=== PATIENT | male | born 1965 | race Caucasian/White ===

== ENCOUNTER 2023-02-15 07:56 | Observation (INO) | payer OTHER, SELFPAY ==
[2023-02-15] VITALS (17 sets, daily range): BP systolic 119–155; BP diastolic 77–98; PULSE 75–104; RESP 10–22; TEMP 36.4–36.6; O2SAT 91–100; BMI 34.2; BMI 33.1
--- NOTE | 2023-02-15 07:57 | ECG_ITS ---
APPROVED REPORT Exam: Resting ECG HR:77 bpm ECG Measurements Heart Rate 77 AXES UT 185 P 61 QRSd 92 QRS 32 QT 369 T 36 QTc 401 Conclusion SINUS RHYTHM POSSIBLE RIGHT VENTRICULAR CONDUCTION DELAY [RSR (QR) IN V1/V2] BORDERLINE ECG UNCONFIRMED REPORT Electronically signed by : Saud Ventura MD 02/15/2023 17:07:07
[2023-02-15 08:20] LABS: Basophils # 0.1 K/mm3 (0-0.2); Basophils % 0.5 % (0.1-2.0); Eosinophils % 0.3 % (0.1-12.0); Hematocrit 49.8 % (42.0-52.0); Hemoglobin 16.8 g/dL (14.1-18.0); Lymphocytes # 1.3 K/mm3 (0.7-4.5); Lymphocytes % 13.2 % (10-50); Mean Corpuscular HGB Conc 33.7 g/dL (31.8-35.4); Mean Corpuscular Hemoglobin 28.8 pg (27.0-31.2); Mean Corpuscular Volume 85.5 fl (80-94); Mean Platelet Volume 9.2 fl (7.4-10.4); Monocytes # 0.4 K/mm3 (0.1-1.0); Monocytes % 3.9 % (1.7-9.3); Neutrophils # 7.8 K/mm3 (1.8-7.8); Platelet Count 194 K/mm3 (142-424); Red Blood Count 5.83 M/mm3 (4.60-6.20); Red Cell Distribution Width 13.2 % (11.5-17.5); White Blood Count 9.5 K/mm3 (4.8-10.8)
[2023-02-15 08:22] LABS: Chloride 106 mmol/L (98-107)
[2023-02-15 08:23] LABS: Potassium 4.3 mmoL/L (3.5-5.1); Sodium 140 mmol/L (136-145)
--- NOTE | 2023-02-15 08:23 | HMH.EDGENADL ---
Discharge Plan Disposition Patient Disposition: Admitted Chief Complaint: Dizziness Prescriptions Prescriptions: No Action montelukast [Singulair] 10 mg tablet 10 mg PO DAILY meloxicam 15 mg tablet 15 mg PO DAILY Referrals Follow up/Referrals: Harini Darling [Primary Care Provider] - See instructions Clinical Impressions Clinical Impression: Acute labyrinthitis Qualifiers: Laterality: left Qualified Code(s): H83.02 - Labyrinthitis, left ear Peripheral positional vertigo Qualifiers: Laterality: left Qualified Code(s): H81.392 - Other peripheral vertigo, left ear Discharge ED Provider: Tomer Martinez General Adult HPI General Chief complaint: Dizziness Stated complaint: syncope Time Seen by Provider: 02/15/23 07:59 Mode of Arrival: EMS Source of Information: Patient and EMS Limitations: No Limitations Description of Symptoms (Recalled from ER Triage Doc. by RN): Pt presents to ER via EMS after experiencing vertigo and nausea. Pt reports he woke up @ 3 am to urinate and when he stood up, he immediately experienced the room spinning and dizziness. Denies any LOC. He also was nauseated. Pt reports he waited and tried again, however the same thing occured. He reports he had to void and thus crawled to his bathroom. He reports the room continued to spin and he vomited d/t the nausea. Denies any SOA, dyspnea, or chest pain. He denies any hx of these symtoms. Pt also reports my left ear is full , denies having this issues prior to this morning. History of Present Illness HPI narrative: 57-year-old male with no relevant medical history 57-year-old male with history of spondylarthritis, uveitis, IBS presenting with vertigo. Patient states that he woke up today, 10 in order to go to the bathroom. When he tried to roll over to stand up, had intense vertiginous symptoms. Unable to ambulate, so laid on the floor. He laid on the floor for probably 5 or 10 minutes, but had to go to bathroom, so tried to move, had extreme vertigo return. Was able to crawl to the bathroom and void, however was unable to move without extreme vertigo. Patient states vertigo is fatiguing. Made worse with any head movement. Made better with rest. Associated with vomiting. Patient does not fevers, chills, unilateral deficits, blurry vision, double vision, chest pain, shortness of breath, diaphoresis, or any other concerns. Was brought to the emergency department via EMS given symptoms. Related Data Home Medications Medication Instructions Recorded Confirmed meloxicam 15 mg tablet 15 mg PO DAILY 01/28/23 01/28/23 montelukast 10 mg tablet 10 mg PO DAILY 01/28/23 01/28/23 (Singulair) Allergies Allergy/AdvReac Type Severity Reaction Status Date / Time Sulfa (Sulfonamide Allergy Severe Unknown Verified 02/15/23 08:03 Antibiotics) allergy reaction [facility] Disclaimer: The information contained in this section may have been updated after the patient was seen, as this information can be updated by other users. Social History (Updated 01/28/23 @ 09:53 by Teresa Chang MA) Smoking Status: Never smoker alcohol intake: never substance use type: denies use current occupational status: employed Travel in the last 8 weeks: None ROS Obtained: Yes All systems reviewed & no additional complaints except as documented Physical Exam General General appearance: alert and in no apparent distress Head Head exam: atraumatic and normocephalic Eye Eye exam: Present normal appearance, PERRL, EOMI and nystagmus (Lateral reaching extraocular nelson. Fast face toward the left. No rotary or vertical nystagmus.) ENT ENT exam: Present mucous membranes moist Neck Neck exam: Present normal inspection, full ROM and trachea midline Respiratory Respiratory exam: Absent respiratory distress, wheezes, stridor, accessory muscle use or prolonged expiratory phase Cardiovascular Cardiovascular exam: Present regular rate and
[2023-02-15 08:25] LABS: Alanine Aminotransferase 51 U/L (12-78); Albumin Level 4.1 g/dl (3.5-5.0); Albumin/Globulin Ratio 1.5 (1.1-1.8); Alkaline Phosphatase 61 U/L (38-126); Anion Gap 12.3 mEq/L (5-15); Aspartate Amino Transferase 40 U/L (17-59); Bilirubin,Total 0.3 mg/dl (0.2-1.3); Blood Urea Nitrogen 18 mg/dl (9-20); Carbon Dioxide 26 mmol/L (22.0-30.0); Creatinine Clearance Estimated 116 mL/min (50-200); Estimated Glomerular Filt Rate 63 ml/min (>60); GFR (African American) 76 ML/MIN (>60); Globulin 2.8 g/dL (1.3-3.2); Total Protein,Serum 6.9 g/dl (6.3-8.2)
[2023-02-15 08:26] LABS: Calcium 9.2 mg/dl (8.4-10.2); Glucose 142 mg/dl (74-100)
[2023-02-15 08:39] LABS: Troponin I < 0.01 ng/ml (0.00-0.034)
--- NOTE | 2023-02-15 09:40 | PC.NURSE ---
rechecked on pt. He is not having anusea, but still very dizzy with any movement. MD harding
--- NOTE | 2023-02-15 11:39 | CT_ITS ---
FINAL REPORT TECHNIQUE: Thin section axial CT with IV contrast supplemented with multiplanar reconstruction under CT angiogram protocol. 3-D reconstructions were performed. This study was performed with techniques to keep radiation doses as low as reasonably achievable (ALARA). Individualized dose reduction techniques using automated exposure control or adjustment of mA and/or kV according to the patient''s size were employed. CLINICAL HISTORY: Persistent dizziness FINDINGS: The distal vertebral and distal internal carotid arteries have an unremarkable appearance. 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 No aneurysm is seen. Major intracranial vessels are patent without significant stenosis. IMPRESSION: No evidence of significant stenosis. No aneurysm Reviewed, Interpreted and Dictated by Scot Middleton III, MD Transcribed by Josselyn Peña Authenticated and [facility]
--- NOTE | 2023-02-15 11:39 | CT_ITS ---
FINAL REPORT CLINICAL HISTORY: Persistent dizziness FINDINGS: Axial images of the head were obtained without contrast. Coronal reformatted images were also obtained.This study was performed with techniques to keep radiation doses as low as reasonably achievable (ALARA). Individualized dose reduction techniques using automated exposure control or adjustment of mA and/or kV according to the patient's size were employed. There is no evidence of intracranial hemorrhage or mass. The ventricular size is within normal limits. There is no evidence of shift of the midline structures. No abnormal extra axial fluid collection is identified. No skull abnormality is seen on the bone window images. There are retention cysts or polyps in the maxillary sinuses IMPRESSION: No acute intracranial abnormality. Reviewed, Interpreted and Dictated by Scot Middleton III, MD Transcribed by Josselyn Peña Authenticated and [facility]
--- NOTE | 2023-02-15 11:39 | CT_ITS ---
FINAL REPORT TECHNIQUE: Thin section axial CT with IV contrast supplemented with multiplanar reconstruction under CT angiogram protocol. This study was performed with techniques to keep radiation doses as low as reasonably achievable (ALARA). Individualized dose reduction techniques using automated exposure control or adjustment of mA and/or kV according to the patient''s size were employed. NASCET criteria was utilized during interpretation. CLINICAL HISTORY: Persistent dizziness FINDINGS: Aortic arch: Arch shows no significant narrowing. Great vessel origins are widely patent. Right carotid: No significant stenosis is seen of the cervical common or internal carotid artery. Left carotid: No significant stenosis is seen of the cervical common or internal carotid artery. Vertebral: The vertebral arteries are hypoplastic but patent bilaterally. IMPRESSION: No evidence of significant stenosis. Reviewed, Interpreted and Dictated by Scot Middleton III, MD Transcribed by Josselyn Peña Authenticated and [facility]
--- NOTE | 2023-02-15 11:57 | PC.NURSE ---
pt to ct scan via stretcher
--- NOTE | 2023-02-15 13:37 | PC.NURSE ---
DR CAMPBELL ACCEPTED PT FOR ADMISSION
--- NOTE | 2023-02-15 13:38 | PC.NURSE ---
TARA WITH CARE MANAGEMENT NOTIFIED OF ADMISSION
--- NOTE | 2023-02-15 13:42 | EXP.HP ---
History of Present Illness *Admission Date: 02/15/23 *Reason for visit:: dizziness, nausea *History of present illness: Mr. Suggs is a 57-year-old male with history of spondyloarthropathy, allergies, who presents with acute onset overnight of dizziness, vomiting. Patient reports that he woke up at approximately 3 this morning to go the bathroom and when he stood up he immediately experienced the sensation of the room spinning and doing somersaults. Denies any trauma, loss of consciousness, syncope. He reports feeling nauseated and so he laid back down and waited for symptoms to pass. However symptoms did not any really needed to use the bathroom. He decided to make his way to the bathroom which necessitated him crawling on his hands and knees. After going to the bathroom, he laid on the floor where he proceeded to throw up. He slipped on the floor for few hours before his found him. He was unable to get up off the floor due to dizziness necessitating EMS to be called. He denies any shortness of breath, chest pain, confusion. Of note was vaccinated for flu and pneumonia 3 weeks ago and diagnosed with COVID approximately 2 weeks ago. Symptoms resolved from COVID other than some fullness in his left ear. Denies any fever or chills. No headaches. On evaluation in the ER, patient was continuing to feel dizzy. Numerous treatments were tried including steroids, IV fluids, and Valium with no benefit. Given failure of ability to discharge safely from the ER, medicine was consulted for admission and further management. During discussion with the ER physician, patient received some minor benefit from performance of an Angelica maneuver. On arrival to the floor, patient states he is doing okay as long as he does not move. Patient states vertigo is fatiguing. Made worse with any head movement. Made better with rest. Associated with vomiting. Patient denies fevers, chills, unilateral deficits, blurry vision, double vision, chest pain, shortness of breath, diaphoresis, or any other concerns. [facility] Disclaimer: The information contained in this section may have been updated after the patient was seen, as this information can be updated by other users. Medical History Allergies Arthritis Articular cartilage disorder of left foot Asthma History of gastroesophageal reflux (GERD) Non-alcoholic fatty liver disease Peptic ulcer disease Surgical History History of colonoscopy Hx of cholecystectomy Hx of tonsillectomy Family History Family history of lymphoma Family history of diabetes mellitus type II Family history of non-Hodgkin's lymphoma Family history of hyperlipidemia Social History Smoking Status: Never smoker alcohol intake: current substance use type: denies use current occupational status: employed Travel in the last 8 weeks: None Review of Systems Review of Systems Review of systems (narrative): 14 point review of systems performed, pertinent positives and negatives as per [facility] Meds Home Medications and Allergies Home Medications Medication Instructions Recorded Confirmed Type montelukast 10 mg tablet 10 mg PO DAILY Allergy Symptoms 01/28/23 02/15/23 History (Siomara) New Prescriptions to Start Prescriptions: Allergies Allergy/AdvReac Type Severity Reaction Status Date / Time Sulfa (Sulfonamide Allergy Severe Unknown Verified 02/15/23 08:03 Antibiotics) allergy reaction Exam Data for Last 24 hours Vital signs and Labs for Last 24 Hours: Temp Pulse Resp BP Pulse Ox O2 Del Method 97.7 F 90 12 155/81 H 94 L Room Air 02/15/23 07:56 02/15/23 11:45 02/15/23 11:45 02/15/23 11:45 02/15/23 11:45 02/15/23 07:56 Laboratory Results - last 24 hr 02/15/23 08:00
--- NOTE | 2023-02-15 14:15 | PC.NURSE ---
Report called to Fatoumata ARANGO
--- NOTE | 2023-02-15 14:29 | PC.NURSE ---
arrived to floor by w/c from ED
--- NOTE | 2023-02-15 17:50 | PC.NURSE ---
RECEIVED PT AROUND 1530. PT HAS HAD NO NEEDS SINCE. HAS BEEN RESTING IN BED, NO C/O NOTED. VSS.
[2023-02-16 04:00] VITALS: BP 116/65; PULSE 95; RESP 18; TEMP 36.8; O2SAT 96; BMI 33.4
--- NOTE | 2023-02-16 04:55 | PC.NURSE ---
pt cont to report dizziness when moving head side to side and with position change. pt ambulated this morning to bathroom and reports dizziness is some better. ambulation was more steady this morning this previously early in the shift.
[2023-02-16 06:38] LABS: Basophils % 0.1 % (0.1-2.0); Eosinophils % 0.1 % (0.1-12.0); Hematocrit 50.5 % (42.0-52.0); Hemoglobin 16.7 g/dL (14.1-18.0); Lymphocytes # 1.8 K/mm3 (0.7-4.5); Lymphocytes % 10.1 % (10-50); Mean Corpuscular Hemoglobin 28.1 pg (27.0-31.2); Mean Corpuscular Volume 85.3 fl (80-94); Mean Platelet Volume 8.9 fl (7.4-10.4); Monocytes # 1.1 K/mm3 (0.1-1.0); Monocytes % 6.1 % (1.7-9.3); Neutrophils # 14.6 K/mm3 (1.8-7.8); Neutrophils % 83.6 % (37.0-80.0); Platelet Count 230 K/mm3 (142-424); Red Blood Count 5.92 M/mm3 (4.60-6.20); Red Cell Distribution Width 13.4 % (11.5-17.5); White Blood Count 17.5 K/mm3 (4.8-10.8)
[2023-02-16 06:44] LABS: Chloride 105 mmol/L (98-107); Potassium 3.9 mmoL/L (3.5-5.1); Sodium 140 mmol/L (136-145)
[2023-02-16 06:46] LABS: Alanine Aminotransferase 38 U/L (12-78); Alkaline Phosphatase 54 U/L (38-126); Aspartate Amino Transferase 27 U/L (17-59); Bilirubin,Total 0.4 mg/dl (0.2-1.3); Blood Urea Nitrogen 16 mg/dl (9-20); Creatinine Clearance Estimated 123 mL/min (50-200); Estimated Glomerular Filt Rate 69 ml/min (>60); GFR (African American) 84 ML/MIN (>60)
[2023-02-16 06:47] LABS: Albumin Level 3.9 g/dl (3.5-5.0); Albumin/Globulin Ratio 1.4 (1.1-1.8); Anion Gap 11.9 mEq/L (5-15); Calcium 8.9 mg/dl (8.4-10.2); Carbon Dioxide 27 mmol/L (22.0-30.0); Globulin 2.8 g/dL (1.3-3.2); Glucose 117 mg/dl (74-100); Total Protein,Serum 6.7 g/dl (6.3-8.2)
[2023-02-16 06:51] LABS: MANUAL DIFFERENTIAL MANUAL DIFFERENTIAL (MANUAL DIFF)
[2023-02-16 07:07] LABS: Magnesium 1.9 mg/dl (1.6-2.3)
[2023-02-16 07:10] VITALS: BP 143/80; PULSE 90; RESP 18; TEMP 36.7; O2SAT 94
[2023-02-16 07:53] LABS: Lymphocytes % 13 % (10-50); Monocytes % 5 % (2-9); Neutrophils % 81 % (42-76); Total Cells Counted 100
[2023-02-16 07:54] LABS: Platelet Estimate Normal; RBC Morphology Normal
[2023-02-16 08:00] VITALS: O2SAT 98
--- NOTE | 2023-02-16 11:12 | EXP.DC.SUM ---
General Admission date:: 02/15/23 Discharge date: 02/16/23 HPI HPI HPI: Mr. Suggs is a 57-year-old male with history of spondyloarthropathy, allergies, who presents with acute onset overnight of dizziness, vomiting. Patient reports that he woke up at approximately 3 this morning to go the bathroom and when he stood up he immediately experienced the sensation of the room spinning and doing somersaults. Denies any trauma, loss of consciousness, syncope. He reports feeling nauseated and so he laid back down and waited for symptoms to pass. However symptoms did not any really needed to use the bathroom. He decided to make his way to the bathroom which necessitated him crawling on his hands and knees. After going to the bathroom, he laid on the floor where he proceeded to throw up. He slipped on the floor for few hours before his found him. He was unable to get up off the floor due to dizziness necessitating EMS to be called. He denies any shortness of breath, chest pain, confusion. Of note was vaccinated for flu and pneumonia 3 weeks ago and diagnosed with COVID approximately 2 weeks ago. Symptoms resolved from COVID other than some fullness in his left ear. Denies any fever or chills. No headaches. On evaluation in the ER, patient was continuing to feel dizzy. Numerous treatments were tried including steroids, IV fluids, and Valium with no benefit. Given failure of ability to discharge safely from the ER, medicine was consulted for admission and further management. During discussion with the ER physician, patient received some minor benefit from performance of an Angelica maneuver. On arrival to the floor, patient states he is doing okay as long as he does not move. Patient states vertigo is fatiguing. Made worse with any head movement. Made better with rest. Associated with vomiting. Patient denies fevers, chills, unilateral deficits, blurry vision, double vision, chest pain, shortness of breath, diaphoresis, or any other concerns. Hospital Course Hospital Course Hospital Course: 57-year-old male who presented to the ER with dizziness. Concern for vestibular neuritis versus acute labyrinthitis versus BPPV. Patient's symptoms acute in onset. Unable to discharge safely from the ER. Discussion with ER physician, requested admission for continued steroids, stabilization, and further management and observation. Medicine admitted overnight. Patient doing better after receiving at least 2 rounds of steroids. Seen by PT, given exercises to do at home. Patient ambulating with minimal assistance. Showing improvement and stable to discharge home to complete steroid taper. Problems addressed as follows: Dizziness - Acute labyrinthitis versus vestibular neuritis, in the setting of loss of hearing/tinnitus as well as dizziness, labyrinthitis most likely cause. Started on steroids in the ER but found to be exceptionally unsteady and unsafe to go home. Admitted overnight for observation. PT was evaluated who performed Angelica maneuver and gave patient rehab exercises. Started on scopolamine patch x1. Received a couple doses of meclizine with improvement in dizziness. CT imaging of head obtained with no acute findings. Given improvement by following morning after admission with use of steroids, will hold on MRI at this time. Labs remained stable. Plan to discharge home to complete 10-day taper of prednisone. We will continue pantoprazole 40 mg daily for GI protection given history of peptic ulcer disease. Patient stable to discharge home with . Family comfortable with plan. Exam Data for Last 24 hours Vital signs and Labs for Last 24 Hours: Temp Pulse Resp BP Pulse Ox O2 Del Method 98.0 F 90 18 143/80 H 98 Room Air 02/16/23 07:10 02/16/23 07:10 02/16/23 07:10 02/16/23 07:10 02/16/23 08:00 02/16/23 09:39 Laboratory Results - last 24 hr 02/16/23 05:54: WBC 17.5 H D, RBC 5.92, Hgb 16.7, Hct 50.5, MCV 85.3, MC
--- NOTE | 2023-02-16 11:39 | HMH.PTEV ---
Physical Therapy Evaluation Rehab PT IP Evaluation Start: 02/15/23 13:38 Freq: ONCE Status: Active Protocol: Document 02/16/23 11:33 PHORNE (Rec: 02/16/23 11:39 PHORNE [id number]) Subjective/History History History 57 yowm adm to [facility] with acute onset vertigo of unknown cause . 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 He reports he is generally independent with all mobility without AD and lives with spouse. Subjective Subjective He reports multiple factors lindsey tcould effect his vertiginous symptoms: auto- immune disorders, seasonal allergies with increased congestion, recent flu and PNA vaccinations, recent COVID+, sudden onset tinnitus. New diagnosis of cancer in past 12 No months? Rehab PT IP Eval Objective Appearance Patient Behavior Appropriate Patient Orientation Person,Place,Time Difficulty following instructions none Speech Pattern Clear Ambulation Patient Able to Ambulate Yes Ambulation Observation IP General Gait Pattern Observation Ataxic Gait Ambulation Distance (feet) 30 Ambulation Assistive Device None Ambulation Ability Contact Guard/Hand Hold Balance Ability to Arise Able, uses arms to help Sitting Balance Steady, safe Standing Balance Unsteady Dynamic Sitting Balance Ability Good Dynamic Standing Balance Ability Fair Transfers Bed Transfer Ability Supervision/Stand by Chair Transfer Ability Contact Guard/Hand Hold Sit to Stand Bed Transfer Ability Contact Guard/Hand Hold Sit to Stand Chair Transfer Ability Contact Guard/Hand Hold ROM All Extremities PT ROM Status WFL MMT All Extremities PT MMT WFL Rehab PT IP prob,goals,plan Problems Date of Evaluation: 02/16/23 Discharge Plan PT Discharge Plan Pt given home program for vestibular habituation exercises to perform. Currently no inpatient therapy needs. May benefit from outpatient vestibular rehab if symptoms persist. His symptoms ore much improved vs admission. Eval Complexity
--- NOTE | 2023-02-17 13:38 | CARE MANAGER ---
Contacted patient related to hospital discharge. He states he is about the same as he was yesterday. He did warp picker a walker so he could walk around the house safely. He did wonder how long he would have the vertigo. Dr. Zelaya said probably a week or so so we shared that with the patient. He is aware of follow up appointment. [facility] [place]stien
== END 2023-02-16 13:52 | disposition home or self-care (01) ==
LOC: ER 13:39 → 2ND 14:30
PROVIDERS: Admitting Provider Internal Medicine Adolescent Medicine; Emergency Provider Emergency Medicine; PCP Family Medicine; Visit Provider Internal Medicine Adolescent Medicine
DX: H83.02 Labyrinthitis, left ear (principal); H81.392 Other peripheral vertigo, left ear; E66.1 Drug-induced obesity; Z68.33 Body mass index [BMI] 33.0-33.9, adult; Z79.899 Other long term (current) drug therapy; Z86.16 Personal history of COVID-19
CPT/HCPCS: 36415; 70450; 70496; 70498; 80053; 83735; 84484; 85007; 85025; 93005; 97163; 99285; G0378; Q9967

== ENCOUNTER → 2023-02-23 18:14 | Outpatient (CLI) | payer OTHER, SELFPAY ==
[2023-02-23 19:58] LABS: Basophils % 0.2 % (0.1-2.0); Eosinophils % 0.3 % (0.1-12.0); Hematocrit 49.3 % (42.0-52.0); Hemoglobin 17.2 g/dL (14.1-18.0); Lymphocytes # 1.5 K/mm3 (0.7-4.5); Lymphocytes % 11.9 % (10-50); Mean Corpuscular Hemoglobin 30.6 pg (27.0-31.2); Mean Corpuscular Volume 87.4 fl (80-94); Mean Platelet Volume 9.7 fl (7.4-10.4); Monocytes # 0.7 K/mm3 (0.1-1.0); Monocytes % 5.6 % (1.7-9.3); Neutrophils # 10.5 K/mm3 (1.8-7.8); Neutrophils % 82.1 % (37.0-80.0); Platelet Count 208 K/mm3 (142-424); Red Blood Count 5.64 M/mm3 (4.60-6.20); Red Cell Distribution Width 13.5 % (11.5-17.5); White Blood Count 12.7 K/mm3 (4.8-10.8)
[2023-02-23 20:05] LABS: Thyroid Stimulating Hormone 1.29 uIU/mL (0.465-4.68)
== END ==
PROVIDERS: PCP Nurse Practitioner Family; Visit Provider Nurse Practitioner Family
DX: H81.399 Other peripheral vertigo, unspecified ear (principal); R79.89 Other specified abnormal findings of blood chemistry
CPT/HCPCS: 84443; 85025

== ENCOUNTER → 2023-03-02 16:38 | Outpatient (CLI) | payer OTHER, SELFPAY ==
[2023-03-02 16:42] LABS: MANUAL DIFFERENTIAL MANUAL DIFFERENTIAL (MANUAL DIFF)
[2023-03-02 17:15] LABS: Basophils # 0.1 K/mm3 (0-0.2); Basophils % 0.7 % (0.1-2.0); Eosinophils # 0.1 K/mm3 (0.0-0.4); Eosinophils % 1.1 % (0.1-12.0); Hematocrit 51.5 % (42.0-52.0); Lymphocytes # 2.2 K/mm3 (0.7-4.5); Mean Corpuscular HGB Conc 34.9 g/dL (31.8-35.4); Mean Corpuscular Hemoglobin 30.7 pg (27.0-31.2); Mean Corpuscular Volume 87.9 fl (80-94); Mean Platelet Volume 8.9 fl (7.4-10.4); Monocytes # 0.7 K/mm3 (0.1-1.0); Monocytes % 6.6 % (1.7-9.3); Neutrophils # 7.9 K/mm3 (1.8-7.8); Neutrophils % 71.6 % (37.0-80.0); Platelet Count 189 K/mm3 (142-424); Red Blood Count 5.86 M/mm3 (4.60-6.20); Red Cell Distribution Width 13.7 % (11.5-17.5); White Blood Count 11.1 K/mm3 (4.8-10.8)
[2023-03-02 18:26] LABS: Erythrocyte Sedimentation Rate 28 mm/hr (0-20)
[2023-03-02 19:37] LABS: Lymphocytes % 24 % (10-50); Monocytes % 1 % (2-9); Neutrophils % 75 % (42-76); Platelet Estimate Normal; RBC Morphology Normal; Total Cells Counted 100
[2023-03-02 22:16] LABS: C-Reactive Protein 2.7 mg/L (0-4)
== END ==
PROVIDERS: PCP Family Medicine; Visit Provider Nurse Practitioner Family
DX: D72.829 Elevated white blood cell count, unspecified (principal); H83.09 Labyrinthitis, unspecified ear
CPT/HCPCS: 36415; 85007; 85014; 85018; 85048; 85049; 85651; 86140

== ENCOUNTER → 2023-03-03 14:10 | Outpatient (CLI) | payer OTHER, SELFPAY ==
--- NOTE | 2023-03-03 14:20 | CT_ITS ---
FINAL REPORT TECHNIQUE: Thin-section axial CT images were performed through the temporal bones before and after contrast administration. Coronal and sagittal reformatted images were submitted. This study was performed with techniques to keep radiation doses as low as reasonably achievable, (ALARA). Individualized dose reduction techniques using automated exposure control or adjustment of mA and/or kV according to the patient's size were employed. CLINICAL HISTORY: sudden onset on 02/15 of vertigo, nausea and headache now there is lingering left sided numbness and left ear hearing loss hand injected isovue 300 100 ml on 3rd scan FINDINGS: Right: The internal and external auditory canals are normal. The inner ear structures are within normal limits. The middle ear cavity is unremarkable. The ossicles are intact. The mastoid antrum and mastoid air cells are unremarkable. Left: The internal and external auditory canals are normal. The inner ear structures are within normal limits. The middle ear cavity is unremarkable. The ossicles are intact. The mastoid antrum and mastoid air cells are unremarkable. There is no evidence of abnormal contrast enhancement. There are retention cysts or polyps in the maxillary sinuses. IMPRESSION: No acute abnormality. Reviewed, Interpreted and Dictated by Scot Middleton III, MD Transcribed by Gloria Almodovar Authenticated and [facility]
--- NOTE | 2023-03-03 14:59 | MR_ITS ---
FINAL REPORT CLINICAL HISTORY: acute labyrinthitis, diff is cva, mass, abscess, VERTIGO, TINNITUS FINDINGS: Multiplanar MR imaging of the brain was performed without and with contrast. There is no evidence of intracranial hemorrhage or mass. No abnormal extra-axial fluid collection is seen. The ventricular size is within normal limits. There is no evidence of shift of the midline structures. The posterior fossa and brainstem have an unremarkable appearance. No area of abnormal restricted diffusion is identified. Normal major vessel vascular flow voids are noted. There is mild enhancement of the left vestibule and left semicircular canals consistent with labyrinthitis. There is mild mucosal thickening in the maxillary sinuses. IMPRESSION: Findings consistent with labyrinthitis. Reviewed, Interpreted and Dictated by Scot Middleton III, MD Transcribed by Gloria Almodovar Authenticated and [facility]
== END ==
PROVIDERS: PCP Family Medicine; Visit Provider Nurse Practitioner Family
DX: R22.0 Localized swelling, mass and lump, head (principal); R20.0 Anesthesia of skin; H83.09 Labyrinthitis, unspecified ear; D72.829 Elevated white blood cell count, unspecified
CPT/HCPCS: 70482; 70553; A9576; Q9967

== ENCOUNTER → 2023-03-03 14:25 | Outpatient (CLI) | payer OTHER, SELFPAY ==
[2023-03-03 08:53] LABS: Chloride 103 mmol/L (98-107)
[2023-03-03 08:54] LABS: Potassium 4.2 mmoL/L (3.5-5.1); Sodium 143 mmol/L (136-145)
[2023-03-03 08:57] LABS: Anion Gap 15.2 mEq/L (5-15); Blood Urea Nitrogen 16 mg/dl (9-20); Calcium 9.3 mg/dl (8.4-10.2); Carbon Dioxide 29 mmol/L (22.0-30.0); Estimated Glomerular Filt Rate 63 ml/min (>60); GFR (African American) 76 ML/MIN (>60); Glucose 86 mg/dl (74-100)
== END ==
PROVIDERS: PCP Nurse Practitioner Family; Visit Provider Nurse Practitioner Family
DX: D72.829 Elevated white blood cell count, unspecified (principal); R20.0 Anesthesia of skin; R22.0 Localized swelling, mass and lump, head
CPT/HCPCS: 80048

== ENCOUNTER → 2023-03-12 11:11 | Outpatient (POV) | payer OTHER, SELFPAY | PROVIDERS: Visit Provider Specialist/Technologist | DX: Z00.00 Encounter for general adult medical examination without abnormal findings (principal) ==

== ENCOUNTER 2023-03-30 13:30 | Outpatient (RCR) | payer OTHER, SELFPAY ==
--- NOTE | 2023-03-23 16:12 | HMH.PTOPEV ---
PT Outpatient Evaluation Rehab PT Outpatient Evaluation Start: 03/23/23 13:46 Freq: Status: Active Protocol: Document 03/23/23 15:05 PHORNE (Rec: 03/23/23 15:23 PHORNE [id number]) E-signed By Tim Thurston, PT Outpatient Therapy Subjective History Subjective History This is the initial PT eval for Conor Suggs, 57 yowm who presents with c/o sudden onset severe vertigo ~ 1 mo ago in the middle of the night . The vertigo was constant and not positional in nature. Hi vertigo became so severe he had to be admitted to the hospital. He felt significantly better after a course of steroids, but continues to have L side tinnitus, hearing loss, and mild vertigo with certain activities. He had CT and MRI performed which showed likelihood of L side labrynthitis of unknown cause. He also feels intermittent L side facial numbness with worsening symptoms. [place] shows no vertigo or nystagmus this date. Occulomotor testing is normal except VOR cancellation results in increased dizziness . New diagnosis of cancer in past 12 No months? Chief Complaint Paresthesia,Other Symptoms Relieved By Nothing Symptoms Aggravated By Sitting,Standing,Physical Activity,Twisting,Walking Prior Functional Limitations None Current Functional Limitations Standing,Sitting,Walking Symptom Description Intermittent,Activity Dependent Balance Eval Nystagmus Nystagmus Presence None Oculomotor Gaze Oculomotor Gaze Nml: Vergence Smooth Pursuit Saccades Cover/Uncover Cross Cover Abn: VOR Cancellation [place] Feet Together/Eyes open/Stable Surface pass Feet Together/Eyes Closed/Stable Surface pass Feet Together/Eyes open/Unstable Surface pass Feet Together/Eyes Closed/Unstable pass Surface Dynamic Gait Index Test Protocol Gait Level Surface Normal Query Text: Instructions: Walk at your normal speed from here to the next enoch (20'). Grading: Enoch the lowest category that applies. Change in Gait Speed Normal Query Text: Instructions: Begin walking at your normal pace (for 5'), when I tell you go , walk as fast as you can (for 5'). When I tell you slow , walk as slowly as you can (for 5'). Grading: Enoch the lowest category that applies. Gait with Horizontal Head Turns Moderate Impairment Query Text: Instructions: Begin walking at your normal pace. When I tell you to look right , keep walking straight, but turn you head to the right. Keep looking to the right unit I tell you look left , then keep walking straight and turn your head to the left. Keep your head to the left until I tell you look straight , then keep walking straight, but return you head to the center. Grading: Enoch the lowest category that applies. Gait with Vertical Head Turns Mild Impairment Query Text: Instructions: Begin walking at your normal pace. When I tell you to look up , keep walking staight, but tip your head up. Keep looking up until I tell you to look down , then keep walking straight and tip your head down. Keep your head down until I tell you look straight , then keep walking straight, but return your head to the center. Grading: Enoch the lowest category that applies. Gait and Pivot Turn Normal Query Text: Instructions: Begin walking at your normal pace. When I tell you turn and stop , turn as quickly as you can to face the opposite direction and stop. Grading: Enoch the lowest category that applies. Step Over Obstacle Normal Query Text: Instructions: Begin walking at your normal speed. When you come to the shoebox, step over it, not around it and keep walking. Grading: Enoch the lowest category that applies. Step Around Obstacles Mild Impairment Query Text: Instructions: Begin walking at normal speed. When you come to the first cone (about 6' away), walk around the right side of it. When you come to the second cone (6' past first cone), walk around it to the left. Grading: Enoch the lowest category that applies. Steps Mild Impairment Query Text: Instructions: Walk up these stairs as you would at home. At the top, turn around and walk down. Grading: Enoch the lowest category that applies. Scoring Dynamic Gait Index Score 19 Outpatient Therapy Assessment Impairments Problems/Impairmments Impaired Walking,Impaired Standing,Impaired Sitting, Impaired Driving,Impaired Household Care,Impaired Stair Climbing,Impaired Incline Stepping,Impaired Stepping on Uneven Surface,Impaired Bending,Impaired Recreational Activities,Impaired Work Activities,Impaired Self Care/ Self Management Prognosis Rehab Potential Good Comment L side UVH (unilateral vestibular hypofunction) likely as a result of labrynthitis. Clinical Impression Consistent with Diagnosis Yes Short Term Goals Number of Weeks 2 Improve Gait Pattern without Assistive Yes Device Improve Ability For Household Care Yes Increase DGI Score Yes: Patient to be Ind w/ HEP Yes Director Of Sustainable Design Goals Number of Weeks 4 Increase Ability to Walk Yes: > 15 min without dizziness Increase Ability to Drive/Ride in Car Yes Improve Ability to Climb Stairs Yes Improve Ability to Step on Uneven Yes Surfaces Improve Tolerance to Work Activities Yes Improve Balance Yes Increase DGI Score Yes: Patient to be Ind w/ Advanced HEP Yes Outpatient Therapy Plan of Care Treatment Plan May Include Therapeutic Exercise Including Home Yes Exercise Program Manual Therapy Techniques Yes Neuromuscular Re-education Yes Therapeutic Activities to Return to Yes Previous Functional/Work Level Gait Training Yes ADL/Self Care Education Yes Eval/Re-Eval Yes Frequency Times per week 2 Duration Number of Weeks 4 Addendums This patient is a candidate for social No or vocational rehab? Patient/Guardian verbally acknowledges Yes understanding of treatment program and consents to further treatment? Patient/Guardian verbally acknowledges Yes understanding of diagnosis, prognosis and goals for treatment? Eval Complexity PT Charges 91246 - High Complexity Shoulder/Elbow Eval Shoulder Objective Measurements Elbow Objective Measurements PHYSICIAN CERTIFICATION: I certify the specified therapy services for Conor Suggs are required, authorized, and reviewed every 30 days.
== END 2023-03-30 14:30 | disposition home or self-care (01) ==
LOC: PT 13:30
PROVIDERS: PCP Family Medicine; Visit Provider Nurse Practitioner Family
DX: H83.09 Labyrinthitis, unspecified ear (principal); D72.829 Elevated white blood cell count, unspecified; R20.0 Anesthesia of skin; R22.0 Localized swelling, mass and lump, head
CPT/HCPCS: 97112; 97163

== ENCOUNTER 2023-04-07 08:58 | Day surgery (SDC) | payer OTHER, SELFPAY ==
[2023-04-07 09:22] VITALS: BP 147/80; PULSE 82; RESP 18; TEMP 36.2; O2SAT 100; BMI 35.1
[2023-04-07 10:19] VITALS: O2SAT 100
[2023-04-07 10:40] VITALS: BP 84/61; PULSE 57; RESP 16; TEMP 36.3; O2SAT 97
--- NOTE | 2023-04-07 10:44 | HMH.SCOPE ---
Procedure: Date: 04/07/23 Patient Date of :: 1965 Procedure Performed:: EGD Indications:: Abdominal bloating Performing Provider:: Chandler Bennett MD Referring Provider:: Harini Darling Sedation:: See RN records Procedure:: The gastroscope was gently passed through the incisoral orifice into the oral cavity and under direct visualization the esophagus was intubated. The endoscope was passed down the esophagus, through the stomach, and into the duodenum. Color, texture, mucosa, and anatomy of the esophagus, stomach, and duodenum were carefully examined with the scope. Findings:: Oropharynx: normal Esophagus: normal EG Junction: intact at 40 cm Cardia: normal Fundus: normal Body: Gastritis. Biopsy obtained Antrum: Gastritis, linear erythema. Biopsies obtained Duodenal bulb: normal Duodenum (second and third portion): normal. Biopsies obtained Impression: Gastritis Recommendations:: Await pathology results Omeprazole 20 mg once daily, then take as needed Follow up with referring provider Complications:: none Estimated blood obtained (mL): 0 Colonoscopy Component Colonoscopy Component Was a colonoscopy performed during today's procedure?: No
--- NOTE | 2023-04-07 10:46 | HMH.SCOPE ---
Procedure: Date: 04/07/23 Patient Date of :: 1965 Procedure Performed:: Colonoscopy Indications:: Screening colonoscopy Performing Provider:: Chandler Bennett MD Referring Provider:: Harini Darling Sedation:: See RN records Procedure:: After placing the patient in the left lateral decubitus position, the colonoscopy was gently inserted into the rectum and under direct visualization advanced to the cecum which was identified by transillumination in the right lower quadrant, identification of the ileocecal valve, appendiceal orifice, and cecal strap. Color, texture, mucosa, and anatomy of the colon were carefully examined with the scope. Findings:: Anal canal: normal Rectum: normal Sigmoid colon: Mild diverticulosis Descending colon: normal without polyps or inflammatory changes Splenic flexure: normal Transverse colon: normal without polyps or inflammatory changes Hepatic flexure: normal Ascending colon: normal without polyps or inflammatory changes Cecum: normal Terminal ileum: not visualized Impression: Mild sigmoid diverticulosis Recommendations:: Higher fiber diet Repeat colonoscopy in 10 years or sooner if clinically indicated Complications:: none Estimated blood obtained (mL): 0 Colonoscopy Component Colonoscopy Component Was a colonoscopy performed during today's procedure?: Yes Recommended follow up colonoscopy of at least 10 years?: Yes
[2023-04-07 10:50] VITALS: BP 92/61; PULSE 80; RESP 16; O2SAT 96
[2023-04-07 11:00] VITALS: BP 97/63; PULSE 82; RESP 16; O2SAT 95
[2023-04-07 11:10] VITALS: BP 117/70; PULSE 86; RESP 18; O2SAT 98
== END 2023-04-07 11:30 | disposition home or self-care (01) ==
PROVIDERS: PCP Family Medicine; Visit Provider Internal Medicine
PROC: 0DJ08ZZ Inspection of Upper Intestinal Tract, Via Natural or Artificial Opening Endoscopic (ICD-10-PCS; CPT 43235; principal; 2023-04-07 10:00)
DX: Z12.11 Encounter for screening for malignant neoplasm of colon (principal); K29.70 Gastritis, unspecified, without bleeding; K31.9 Disease of stomach and duodenum, unspecified; K57.30 Diverticulosis of large intestine without perforation or abscess without bleeding
CPT/HCPCS: 45378; 43239

== ENCOUNTER 2023-09-02 08:20 | Outpatient (POV) | payer OTHER, SELFPAY | END 2023-09-02 23:59 | disposition home or self-care (01) | LOC: SC 08:20 | PROVIDERS: Visit Provider Specialist/Technologist | DX: Z00.00 Encounter for general adult medical examination without abnormal findings (principal) ==

== ENCOUNTER 2023-12-22 09:29 | Outpatient (CLI) | payer OTHER, SELFPAY ==
[2023-12-22 16:32] LABS: Basophils # 0.1 K/mm3 (0-0.2); Basophils % 0.7 % (0.1-2.0); Eosinophils # 0.2 K/mm3 (0.0-0.4); Eosinophils % 1.6 % (0.1-12.0); Hematocrit 49.5 % (42.0-52.0); Hemoglobin 16.7 g/dL (14.1-18.0); Lymphocytes % 20.2 % (10-50); Mean Corpuscular HGB Conc 33.7 g/dL (31.8-35.4); Mean Corpuscular Hemoglobin 29.7 pg (27.0-31.2); Mean Corpuscular Volume 88.2 fl (80-94); Mean Platelet Volume 9.5 fl (7.4-10.4); Monocytes # 0.6 K/mm3 (0.1-1.0); Monocytes % 6.5 % (1.7-9.3); Neutrophils # 6.9 K/mm3 (1.8-7.8); Neutrophils % 71.1 % (37.0-80.0); Platelet Count 199 K/mm3 (142-424); Red Blood Count 5.61 M/mm3 (4.60-6.20); White Blood Count 9.7 K/mm3 (4.8-10.8)
[2023-12-22 17:21] LABS: Albumin Level 4.6 g/dl (3.5-5.0); Chloride 106 mmol/L (98-107); Potassium 4.2 mmoL/L (3.5-5.1); Sodium 140 mmol/L (136-145)
[2023-12-22 17:23] LABS: Amylase 79 U/L (30-110)
[2023-12-22 17:24] LABS: Alanine Aminotransferase 27 U/L (12-78); Albumin/Globulin Ratio 1.8 (1.1-1.8); Alkaline Phosphatase 55 U/L (38-126); Anion Gap 11.2 mEq/L (5-15); Aspartate Amino Transferase 31 U/L (17-59); Bilirubin,Total 0.7 mg/dl (0.2-1.3); Blood Urea Nitrogen 17 mg/dl (9-20); Carbon Dioxide 27 mmol/L (22.0-30.0); Estimated Glomerular Filt Rate 63 ml/min (>60); GFR (African American) 76 ML/MIN (>60); Globulin 2.6 g/dL (1.3-3.2); Glucose 80 mg/dl (74-100); Lipase 311 U/L (23-300); Total Protein,Serum 7.2 g/dl (6.3-8.2)
[2023-12-22 17:55] LABS: Thyroid Stimulating Hormone 4.08 uIU/mL (0.465-4.68)
== END 2023-12-22 23:59 | disposition home or self-care (01) ==
LOC: LAB.DROPOF 12-23 09:29
PROVIDERS: PCP Nurse Practitioner Family; Visit Provider Nurse Practitioner Family
DX: R10.11 Right upper quadrant pain (principal)
CPT/HCPCS: 80050; 80053; 82150; 83690; 84443; 85025